=== PATIENT | male | born 1945 | race Caucasian/White ===

== ENCOUNTER 2018-02-22 12:46 | Inpatient (IN) | payer MEDICARE, OTHER ==
--- NOTE | 2018-02-22 13:08 | ED ---
HPI Chest Pain - HPI Summary HPI Summary: This is shaista Mayberry documenting for attending Natan Brown MD. This patient is a 73 year old M presenting to [facility] accompanied by his with a chief complaint of chest pain since a few weeks ago. The patient describes the pain as a pressure. The patient reports that the pain began today when he was loading the car for a road trip. The patient rates the pain 5/10 in severity currently and 8/10 when he exerts himself. Symptoms aggravated by exertion. Symptoms alleviated by nothing. Patient reports bilateral arm pain, bilateral leg pain, shortness of breath, and dizziness. Patient denies nausea. - History of Current Complaint Chief Complaint: EDChestPainROMI Time Seen by Provider: 02/22/18 12:55 Hx Obtained From: Patient Onset/Duration: Started Weeks Ago, Atraumatic, Still Present Timing: Constant Initial Severity: Mild Current Severity: Moderate Pain Intensity: 8 Pain Scale Used: 0-10 Numeric Chest Pain Radiates: Yes Chest Pain Radiates To:: Arm - bilateral arms, Other - bilateral leg pain Character: Pressure/Squeezing Aggravating Factor(s): Exertion Alleviating Factor(s): Nothing Associated Signs and Symptoms: Positive: Chest Pain, Dizziness, Shortness of Breath. Negative: Nausea - Allergy/Home Medications Allergies/Adverse Reactions: Allergies Allergy/AdvReac Type Severity Reaction Status Date / Time No Known Allergies Allergy Verified 04/05/15 08:10 Home Medications: Home Medications Atorvastatin* 40 mg PO DAILY 02/22/18 [History Confirmed 02/22/18] Metformin HCl 500 mg PO DAILY 02/22/18 [History Confirmed 02/22/18] Metoprolol Succinate XL TAB* 50 mg PO DAILY 02/22/18 [History Confirmed 02/22/18 ] Synthroid 75 MCG TAB* 75 mcg PO DAILY 02/22/18 [History Confirmed 02/22/18] Viagra 100 mg PO DAILY 02/22/18 [History Confirmed 02/22/18] Vitamin B12 5,000 mcg SL DAILY 02/22/18 [History Confirmed 02/22/18] Vitamin B6 TAB* 100 mg PO DAILY 02/22/18 [History Confirmed 02/22/18] PMH/Surg Hx/FS Hx/Imm Hx Endocrine/Hematology History: Reports: Hx Thyroid Disease - ON MEDICATION FOR Denies: Hx Diabetes Cardiovascular History: Reports: Hx Hypertension - ON MEDICATION FOR Denies: Hx Angina, Hx Coronary Artery Disease, Hx Myocardial Infarction Respiratory History: Denies: Hx Asthma, Hx Chronic Obstructive Pulmonary Disease (COPD) Musculoskeletal History: Reports: Other Musculoskeletal History - LAMINECTOMY--LUMBAR Sensory History: Reports: Hx Contacts or Glasses - GLASSES Denies: Hx Hearing Aid Opthamlomology History: Reports: Hx Contacts or Glasses - GLASSES - Surgical History Surgery Procedure, Year, and Place: [id number] Hx Anesthesia Reactions: No Infectious Disease History: No Infectious Disease History: Denies: Traveled Outside the [place] in Last 30 Days - Family History Known Family History: Positive: None - patient denies FHx - Social History Alcohol Use: Daily Alcohol Amount: 1 GLASS OF WINE DAILY Substance Use Type: Reports: None Smoking Status (MU): Former Smoker Amount Used/How Often: 1 PPD X 10 YEARS Have You Smoked in the Last Year: No Review of Systems Positive: Chest Pain Positive: Shortness Of Breath Negative: Nausea Positive: Myalgia - bilateral arm pain, bilateral leg pain All Other Systems Reviewed And Are Negative: Yes Physical Exam - Summary Physical Exam Summary: VITAL SIGNS: Reviewed. GENERAL: Patient is a well-developed and nourished MALE who is lying comfortable in the stretcher. Patient is not in any acute respiratory distress. HEAD AND FACE: No signs of trauma. No ecchymosis, hematomas or skull depressions. No sinus tenderness. EYES: PERRLA, EOMI x 2, No injected conjunctiva, no nystagmus. EARS: Hearing grossly intact. Ear canals and tympanic membranes are within normal limits. MOUTH: Oropharynx within normal limits. NECK: Supple, trachea is midline, no adenopathy, no JVD, no carotid bruit, no c- spine tenderness, neck with full ROM. CHEST: Symmetric, no tenderness at palpation LUNGS: Clear to auscultation bilaterally. No wheezing or crackles. CVS: Regular rate and rhythm, S1 and S2 present, no murmurs or gallops appreciated. ABDOMEN: Soft, non-tender. No signs of distention. No rebound no guarding, and no masses palpated. Bowel sounds are normal. EXTREMITIES: FROM in all major joints, no edema, no cyanosis or clubbing. NEURO: Alert and oriented x 3. No acute neurological deficits. Speech is normal and follows commands. SKIN: Dry and warm Triage Information Reviewed: Yes Vital Signs On Initial Exam: Initial Vitals Temp Pulse Resp BP Pulse Ox 97.3 F 86 16 165/88 94 02/22/18 12:48 02/22/18 12:48 02/22/18 12:48 02/22/18 12:48 02/22/18 12:48 Vital Signs Reviewed: Yes Diagnostics - Vital Signs Vital Signs Temp Pulse Resp BP Pulse Ox 02/22/18 12:48 97.3 F 86 16 165/88 94 - Laboratory Result Diagrams: 02/22/18 13:42 02/22/18 13:42 Lab Statement: Any lab studies that have been ordered have been reviewed, and results considered in the medical decision making process. - Radiology CXR Xray Interpretation: No Acute Changes - IMPRESSION: NO ACTIVE DISEASE. Dr. Brown has reviewed this report. Radiology Interpretation Completed By: Radiologist - EKG 12:57 Cardiac Rate: NL - at 80 bpm EKG Rhythm: Sinus Rhythm EKG Interpretation: No ST elevations. ST depressions in I, II, aVL, and V4-V6 14:31 (#2) Cardiac Rate: NL EKG Rhythm: Sinus Rhythm EKG Interpretation: No ST elevations. ST depressions in I, II, aVL, and V4-V6 Chest Pain Course/Dx - Course Assessment/Plan: This patient is a 73-year-old male who presents to the emergency department with a chief complaint of having intermittent chest pain and shortness of breath and diaphoresis. Patient reports that the chest pain is on exertion and usually goes up to 8 out of 10. At rest he does not have any chest pain. Patient has been having the symptoms for a couple weeks. Pain usually lasts onto he gets to rest. He reports that the pain is a pressure- like pain on exam but is sitting his chest. Patient has past medical history significant for hypertension and dyslipidemia. EKG shows sinus rhythm with no ST elevations but has ST depressions in leads 1, 2, aVF, and V4 to V6.. In the ED course the patient was given an aspirin and he was given Lopressor. I held a nitroglycerin since the patient is not having any chest pain. Blood test results without any significant abnormality except for the slight anemia, glucose 143, magnesium 1.8, troponin is 0.12, and BMP 111. We repeated the EKG and he hasnt change from the previous EKG. Patient was placed in a nitroglycerin patch. Therefore this time I discussed my physical exam and findings with Dr. Montes and she accepted the patient for admission. The patient is hemodynamically stable alert and oriented 3. Dr. Montes will decide if she wants heparin at this time. Patient is he will to stable alert and oriented 3. - Chest Pain Differential Diagnosis/HQI/PQRI: Acute WA, ACS, Angina, CHF, Chest Wall, GI Disease, Lower Respiratory Infection - Diagnoses Provider Diagnoses: Unstable angina - Provider Notifications Discussed Care Of Patient With: Isabela Montes Time Discussed With Above Provider: 14:40 Instructed by Provider To: Admit As Inpatient Discharge - Sign-Out/Discharge Documenting (check all that apply): Patient Departure - Discharge Plan Condition: Stable Disposition: ADMITTED TO [facility] Referrals: Km FITZPATRICK,Heath Martinez [Primary Care Provider] - - Billing Disposition and Condition Condition: STABLE Disposition: Admitted to [facility]
[2018-02-22] MEDS ORDERED: Aspirin 81 mg CHEW TAB* 81 MG TAB.CHEW PO ONE (13:10)
[2018-02-22] MEDS ORDERED: Metoprolol Tartrate TAB* 25 MG PO ONE (13:11)
--- NOTE | 2018-02-22 13:51 | RAD ---
INDICATION: Chest pain COMPARISON: None TECHNIQUE: An AP portable view obtained at 1318 hours is submitted. FINDINGS: Bones/Soft Tissues: There are no acute bony findings. Cardiomediastinal: The cardiomediastinal silhouette is normal. Lungs: There are no infiltrates. Pleura: There are no pleural effusions. Other: None IMPRESSION: NO ACTIVE DISEASE.
[2018-02-22 13:53] LABS: ABS Basophils 0.1 10^3/ul (0-0.2); ABS Eosinophils 0.4 10^3/ul (0-0.6); ABS Monocytes 0.8 10^3/ul (0-0.8); ABS Neutrophils 7.5 10^3/ul (1.5-7.7); ABS Nucleated RBC 0 10^3/ul; Eosinophil % 3.3 % (0-6); Hematocrit 35 % (42-52); Hemoglobin 11.9 g/dl (14.0-18.0); Lymphocyte % 18.8 % (25-47); Mean Corpuscular HGB Conc 35 g/dl (31-36); Mean Corpuscular Hemoglobin 32 pg (27-31); Mean Corpuscular Volume 93 fL (80-94); Mean Platelet Volume 8.4 um3 (7.4-10.4); Nucleated Red Blood Cells % 0; Platelet Count 233 10^3/ul (150-450); Red Blood Count 3.73 10^6/ul (4.00-5.40); Red Cell Distribution Width 17 % (10.5-15); White Blood Count 10.7 10^3/ul (3.5-10.8)
[2018-02-22 14:13] LABS: EGFR Non-African American 68.9 (>60)
[2018-02-22] MEDS ORDERED: Nitroglycerin 2% OINT* 1 GM PAK TOPICAL ONE (14:43)
[2018-02-22] MEDS ORDERED: Heparin DRIP 25,000 UNITS(*) 25,000 UNITS/500 ML BAG IV SCH (15:15)
[2018-02-22] MEDS ORDERED: Dextrose 50% Syringe 50 ML* 25 GM/50 ML SYRINGE IV PUSH PRN (15:42)
[2018-02-22] MEDS ORDERED: Nitroglycerin 0.1 mg/Hr PATCH* (2.5 MG) TRANSDERM SCH (16:00)
[2018-02-22] MEDS: Insulin LISPRO* 1 UNITS UNIT SUBCUT SCH ×2 (17:16→22:29)
[2018-02-22] MEDS ORDERED: Heparin VIAL(*) 5000 UNITS/ML VIAL (FIVE THOUSAND) ONE (17:18)
--- NOTE | 2018-02-22 19:25 | HP ---
CC: Dr. Heath Barbour; Dr. Bahena * HISTORY AND PHYSICAL: DATE OF ADMISSION: 02/22/18 PRIMARY CARE PROVIDER: Dr. Heath Barbour. AUTO BRAKE TECHNICIAN: Dr. Bahena. CHIEF COMPLAINT: Chest pain. HISTORY OF PRESENT ILLNESS: Mr. Garcia is a 73-year-old male who has a history of hypertension, hyperlipidemia, and type 2 diabetes, who presents to the emergency room with complaints of exertional chest pain. The patient states that over the last 2 to 3 weeks, he has been developing exertional chest pain. He states that any exertion such as walking slowly in the store results in shortness of breath, feeling tired, and pain across his chest. He states that he also feels discomfort down his arms as well as tingling. This has been going on again for 2 to 3 weeks. He has never experienced anything like this in the past. He believes that it is taking less and less exertion to provoke the chest discomfort. He states that if he sits down for 15 to 20 minutes, the pain will completely go away. He does occasionally have diaphoresis when he feels the chest discomfort. He also notes that after eating, he feels unwell. He describes having that same discomfort within his chest. The pain does admit to having a nuclear stress and echocardiogram with Dr. Bahena approximately 5 years ago. PAST MEDICAL HISTORY: 1. Hypertension. 2. Hyperlipidemia. 3. Hypothyroidism. 4. Acid reflux. 5. Type 2 diabetes. PAST SURGICAL HISTORY: 1. Back surgery. 2. Surgery on the left toes. MEDICATIONS: 1. Lipitor 40 mg p.o. daily. 2. Synthroid/levothyroxine 75 mcg p.o. daily. 3. Metformin 500 mg p.o. daily. 4. Vitamin B6 100 mg p.o. daily. 5. Metoprolol XL 50 mg p.o. daily. 6. Viagra 100 mg p.o. daily. 7. Vitamin B12 5000 mcg SL daily. 8. Losartan/hydrochlorothiazide 100/25 one tab p.o. daily. 9. Aspirin 81 mg p.o. daily. ALLERGIES: STEROIDS cause bad dreams. FAMILY HISTORY: Mom at the age of 65; she had AAA. Dad at the age of 85; he had a CVA. SOCIAL HISTORY: The patient is a former smoker. He smoked approximately 1 pack per day for 12 years, quitting in 1976. He does not drink alcohol routinely. He is retired from working with computer software. His partner, Joana, would be his healthcare proxy. He does have 1 son, who is ill, and has led to a lot of stress within the patient's life. REVIEW OF SYSTEMS: The patient denies any fevers, chills. He states his appetite has generally been poor. He admits to chest pain as noted above. No lower extremity edema. No palpitations. He has had an occasional cough and shortness of breath as above. He admits to occasional nausea. No abdominal pain, diarrhea, constipation. No hematochezia, no hematuria, no dysuria. No focal weakness or sensory loss. No sudden change in the vision. No dysphagia. No joint pains, no muscle pains out of ordinary. No rashes. No anxiety or depression. PHYSICAL EXAMINATION GENERAL: The patient is a well-developed, elderly male, seen sitting up in the stretcher, in no acute distress. VITAL SIGNS: Blood pressure 165/88, pulse 86, respirations 16, temp 97.3, O2 sat 94% on room air. HEENT: Pupils are equal and round. Extraocular muscles are intact. Oropharynx is clear. Oral mucosa is moist. There is no submandibular, cervical , or supraclavicular adenopathy. Thyroid is not enlarged. No thyroid nodules are noted. PULMONARY: Lungs are clear to auscultation bilaterally. CARDIAC: Normal S1, S2. Regular rate and rhythm. I do not appreciate any murmurs. There is no lower extremity edema. ABDOMEN: Bowel sounds present. Abdomen is soft, nontender, nondistended. MUSCULOSKELETAL: There is no cyanosis or clubbing of the digits. There is full active range of motion of all 4 extremities. NEURO: Cranial nerves II through XII are grossly intact. Sensation is intact to light touch throughout. Strength is 5/5 and symmetric to both upper and lower extremities bilaterally. PSYCH: The patient is alert. He is oriented x3. Affect appears appropriate. SKIN: Warm and dry. There are no rashes. There is a small cut at the base of the index finger of the left hand. The patient states he did that on the day of admission trying to cut an Croatian muffin. DIAGNOSTIC STUDIES/LAB DATA: WBC 10.7, hemoglobin 11.9, hematocrit 35, platelets 233. Sodium 137, potassium 3.7, chloride 101, CO2 27, BUN 19, creatinine 1.06, glucose 143, lactic acid 1.7, calcium 9.1, magnesium 1.8. Bilirubin 1.7, AST 18, ALT 26, alk phos 81. CPK 99, CK-MB 5.4. Troponin 0.12. BNP 111. Albumin 4.1. TSH 1.55. EKG reveals normal sinus rhythm with what appear to be ST depressions in the lateral leads. Chest x-ray: No active disease. ASSESSMENT AND PLAN: Mr. Garcia is a 73-year-old male with a history of hypertension, hyperlipidemia, and type 2 diabetes, as well as a past history of smoking, who presents to the emergency room with complaints of chest pain with exertion over the last 2 to 3 weeks. 1. Unstable angina. The patient is going to be admitted for unstable angina as he has had escalating episodes of chest pain with less and less exertion. His troponin is mildly elevated at 0.12. This will be followed every 3 hours. A followup EKG will also be obtained. Given the patient's story and history, he will undergo likely cardiac catheterization tomorrow morning. He will be n.p.o. after midnight. The patient will continue on aspirin 81 mg p.o. daily, Lipitor 80 mg daily (this is an increase from 40 mg baseline at home), metoprolol tartrate 25 mg twice daily, and a nitroglycerin patch at 0.1 mg per hour. The patient has been instructed to inform the nursing staff if he has any further chest pain, at which point, Dr. Ying has recommended administering Plavix 300 mg x1 and 75 mg p.o. daily. Of concern is the patient does admit to having the same chest discomfort after eating, which could indicate that he is developing ischemia just with eating and diverting blood to the gut. This could indicate severe triple vessel disease. The patient will be on a heparin drip. 2. Hypertension. The patient received 25 mg of metoprolol in the emergency room. With this, his blood pressure has improved to the 120 systolic. It was initially 160s in the ER. We will monitor his blood pressure closely. He will continue on metoprolol tartrate 25 mg twice daily and losartan 50 mg daily, which is a reduction from his baseline antihypertensive regimen, while we wait to see where his blood pressure settles out. 3. Type 2 diabetes. Hemoglobin A1c has been ordered. The patient will be placed on a lispro sliding scale with fingersticks a.c., h.s. I am going to hold his usual dose of metformin. 4. Hyperlipidemia. As above, I am going to increase the patient's Lipitor to 80 mg p.o. q.h.s. A lipid profile will be obtained tomorrow morning. 5. Hypothyroidism. We will continue the usual dose of Synthroid. His TSH is in good range. 6. Acid reflux. We will continue p.r.n. omeprazole. 7. Anemia. The patient is anemic with a hemoglobin of 11.9. He does not give any history of recent bleeding. He will have a followup CBC tomorrow morning. I will also add stool occult blood to screen for gastrointestinal bleeding. 8. DVT prophylaxis. According to the Adult Thrombosis Prophylaxis Risk Factor Assessment Guide, the patient has a total risk factor score of 2, making him moderate risk. He is already going to be on a heparin drip and this will act as a DVT prophylaxis. 9. Code status is full. TIME SPENT: Sixty-five minutes was spent admitting this patient of which greater than half was spent [id number] with the patient reviewing his history and performing a physical exam. [id number]/[facility] #: [id number] NORAH
[2018-02-22] MEDS ORDERED: Nitro Patch/OINT Remove PATCH OFF SCH (21:00)
[2018-02-22] MEDS ORDERED: Metoprolol Tartrate TAB* 25 MG PO SCH (21:00)
[2018-02-22] MEDS ORDERED: Atorvastatin* 80 MG TAB PO ONE (21:00)
[2018-02-22 22:14] LABS: Urine Appearance Clear; Urine Blood Negative (Negative); Urine Color Yellow; Urine Ketones Negative (Negative); Urine Protein Negative (Negative); Urine Urobilinogen Negative (Negative)
[2018-02-23 00:53] VITALS: BP 122/67
--- NOTE | 2018-02-23 01:11 | PN ---
Progress Note - Progress Note Date of Service: 02/23/18 Note: Paged by RN - Patient frustrated that the heparin drip keeps beeping. Demanding to leave AMA. On my arrival, patient sitting up in bed, demanding his IVs be removed. Insisting that he is going home. I discussed the concern that he has coronary artery disease and likely needs stents and possible CABG and that the risk of leaving against medical advise could result in a cardiac arrest and . Patient states I am leaving. No one is making me stay here. Patient signed AMA paperwork.
--- NOTE | 2018-02-23 02:43 | DS ---
CC: Dr. Heath Barbour * DISCHARGE SUMMARY: DATE OF ADMISSION: 02/22/18. DATE OF DISCHARGE: Against medical advice is 02/23/18 at 0100 a.m. PRIMARY CARE PROVIDER: Dr. Heath Barbour. PRINCIPAL DIAGNOSIS: Unstable angina. SECONDARY DIAGNOSES: 1. Hyperlipidemia. 2. Hypertension. 3. Diabetes. HOSPITAL COURSE: This is a 73-year-old male with a past medical history of hypertension, hyperlipidemia, and diabetes, who presented to the emergency room with 2 to 3 weeks exertional chest pain. He was found to have an elevated troponin. He was admitted for unstable angina, started on a heparin drip. Cardiology was also consulted. Dr. Ying recommended Plavix to be given. The plan was that the patient was going to be n.p.o. and have a cardiac catheterization in the morning. There was concern for triple-vessel disease as well. Apparently, during the evening, the patient's heparin drip pump kept beeping. He was becoming more and more agitated by this and then demanding to leave against medical advice. I went up and spoke with him. He was sitting at the edge of the bed, ready to leave demanding his IV be removed. I discussed why he needed to stay and the importance of staying including evaluation of his coronary artery disease and that he may need stents or possible bypass surgery that it will be risk leaving this evening. There is a risk of cardiac arrest and . The patient states that he is leaving. He understands and has capacity to leave AMA. He will sign the paperwork. He states no one is making him stay. The patient filled out the paperwork and left against medical advice. Recommend primary care physician close followup and to get in to see Cardiology as well. PATIENT TIME: Greater than 30 minutes spent doing the discharge summary, more than half of the time spent in direct patient contact. [id number]/[facility] #: [id number] NORAH
[2018-02-23] MEDS ORDERED: Levothyroxine TAB* 75 MCG TAB PO SCH (06:00)
[2018-02-23] MEDS ORDERED: Aspirin EC TAB* 81 MG TAB.EC PO SCH (09:00)
[2018-02-23] MEDS ORDERED: Losartan TAB* 25 MG PO SCH (09:00)
== END 2018-02-23 01:07 | disposition left against medical advice (07) | DRG 311 ==
LOC: ED 12:46 → MEDTELE 15:29
PROVIDERS: ADMIT Hospitalist; ATTEND Pediatrics
DX: I20.0 Unstable angina (principal); I10 Essential (primary) hypertension; E78.5 Hyperlipidemia, unspecified; E11.9 Type 2 diabetes mellitus without complications; R74.8 Abnormal levels of other serum enzymes; R07.9 Chest pain, unspecified; K21.9 Gastro-esophageal reflux disease without esophagitis; E03.9 Hypothyroidism, unspecified; Z79.84 Long term (current) use of oral hypoglycemic drugs; Z79.82 Long term (current) use of aspirin; Z79.899 Other long term (current) drug therapy; Z88.8 Allergy status to other drugs, medicaments and biological substances; Z82.3 Family history of stroke; Z87.891 Personal history of nicotine dependence; D64.9 Anemia, unspecified
CPT/HCPCS: 36415; 71045; 80053; 81003; 82550; 82553; 83036; 83605; 83735; 83880; 84443; 84484; 85025; 85730; 93005; 99284; A9270-GY; J1644